=== PATIENT | female | born 1995 | race African-American/Black ===

== ENCOUNTER 2018-05-24 21:59 | Emergency (ER) | payer OTHER ==
[~2018-05-24] VITALS: Ht 154.9 cm; Wt 41.7 kg
[2018-05-24 22:20] VITALS: BP 124/74
[2018-05-24] MEDS ORDERED: Solu-MEDROL 125mg Inj IVP ONE (22:30)
[2018-05-24] MEDS ORDERED: DiphenhydrAMINE 50mg/ml Inj IVP ONE (22:30)
[2018-05-24] MEDS ORDERED: BENADRYL25 MG ORAL (22:33)
[2018-05-24] MEDS ORDERED: PREDNISONE20 MG ORAL (22:33)
--- NOTE | 2018-05-24 22:34 | Emergency Room Report ---
History of Present Illness General Chief Complaint: Allergic Reaction Source: Patient Present Illness HPI Is a 22-year-old female with no past medical history. She presents with chief point of allergic reaction. This afternoon she was getting her eyelid extension and she was laying on the bed and afterward she started having itching to her back. He got better after Benadryl. Now he get came back and worse. Very itchy and swollen to her torso. No fever chills but never had this problem before. No problem with her eyes. Did not take any new medication. No other complaint. Worse with scratching. Allergies: Coded Allergies: No Known Allergies (Unverified , 05/24/18) Patient History Past Medical History: see triage record, old chart reviewed Past Surgical History: none Pertinent Family History: none Social History: Denies: smoking Last Menstrual Period: 03/30/18 Now: No : 2 Para: 1 Immunizations: other Reviewed Nursing Documentation: PMH: Agreed; PSxH: Agreed Nursing Documentation-PMH Hx Hypertension: No - PreEclampsia Review of Systems Eye: Denies: eye pain, blurred vision ENT: Denies: ear pain, nose congestion, throat swelling Respiratory: Denies: cough, shortness of breath Cardiovascular: Denies: chest pain, palpitations Gastrointestinal: Denies: abdominal pain, diarrhea, nausea, vomiting Musculoskeletal: Denies: back pain, joint pain Skin: Reports: rash Neurological: Denies: headache, numbness Endocrine: Denies: increased thirst, increased urine Hematologic/Lymphatic: Denies: easy bruising All Other Systems: negative except mentioned in HPI Physical Exam Vital Signs Date Time Temp Pulse Resp B/P (MAP) Pulse Ox O2 Delivery O2 Flow Rate FiO2 05/24/18 22:05 98.0 85 16 115/73 97 Room Air 98.1 vitals normal Sp02 EP Interpretation: reviewed, normal General Appearance: well appearing, no apparent distress, alert Head: normocephalic, atraumatic Eyes: bilateral eye PERRL, bilateral eye EOMI ENT: hearing grossly normal, normal pharynx Neck: full range of motion, supple, no meningismus Respiratory: chest non-tender, lungs clear, normal breath sounds Cardiovascular #1: regular rate, rhythm, no murmur Gastrointestinal: normal bowel sounds, non tender, no mass, no organomegaly, no bruit, non-distended Musculoskeletal: back normal, gait/station normal, normal range of motion Neurologic: alert, oriented x3 Psychiatric: mood/affect normal Skin: warm/dry, other - diffuse urticaria on torso Medical Decision Making Diagnostic Impression: Primary Impression: Allergic reaction Qualified Codes: T78.40XA - Allergy, unspecified, initial encounter ER Course Patient presents with allergic reaction. No evidence of anaphylaxis or respiratory distress. Better after treatment. We'll discharge home. Last Vital Signs Date Time Temp Pulse Resp B/P (MAP) Pulse Ox O2 Delivery O2 Flow Rate FiO2 05/24/18 22:05 98.0 85 16 115/73 97 Room Air 98.1 Status: improved Disposition: HOME, SELF-CARE Condition: Stable Scripts Prednisone* (PREDNISONE*) 20 Mg Tablet 40 MG ORAL DAILY, #10 TAB Prov: RAY ROSENBERG M.D. 05/24/18 Diphenhydramine Hcl* (BENADRYL*) 25 Mg Capsule 50 MG ORAL Q6H PRN for Itching, #30 CAP Prov: RAY ROSENBERG M.D. 05/24/18 Referrals: [facility],REFERRING (PCP) Patient Instructions: Allergies Additional Instructions: Follow-up with your doctor in 7 days. Return if symptom worsen. RAY ROSENBERG M.D. May 24, 2018 22:34
[2018-05-24 23:30] VITALS: BP 126/75
== END 2018-05-24 23:30 | disposition home or self-care (01) ==
LOC: EMR 22:18
DX: T78.40XA Allergy, unspecified, initial encounter (principal); X58.XXXA Exposure to other specified factors, initial encounter; L50.0 Allergic urticaria; I10 Essential (primary) hypertension
CPT/HCPCS: 96374; 96375; 99284; J1200; J2930

== ENCOUNTER 2018-05-29 16:08 | Emergency (ER) | payer OTHER ==
[~2018-05-29] VITALS: Ht 154.9 cm; Wt 41.7 kg
[~2018-05-29 16:08] MED LIST: BENADRYL25 MG ORAL; PREDNISONE20 MG ORAL
[2018-05-29 16:21] VITALS: BP 118/75
--- NOTE | 2018-05-29 16:40 | Emergency Room Report ---
History of Present Illness General Chief Complaint: Skin Rash/Abscess Present Illness HPI 22-year-old female presents to the emergency department complaining of severely itchy rash that is been progressive 1 week. Patient reports initially started on her wrists bilaterally and have gone up her forearms as well as across her low back. Patient states that she finished a course of steroids and Benadryl which did show some mild improvement initially however her symptoms have returned and progressed as well. She denies pain. Pt. denies fevers, chills or swollen tender lymph nodes. Denies lesions/rashes elsewhere on the body. Denies new medications or body washes or creams. Denies swelling of the lips, tongue , throat or airway. Denies wheezing, or shortness of breath. Denies recent travel , recent illness or ill contacts. denies blisters, oral lesions, or sloughing of the skin. Allergies: Coded Allergies: No Known Allergies (Unverified , 05/24/18) Patient History Past Medical History: see triage record Past Surgical History: none Pertinent Family History: none Now: No Reviewed Nursing Documentation: PMH: Agreed; PSxH: Agreed Nursing Documentation-PMH Hx Hypertension: No - PreEclampsia Review of Systems All Other Systems: negative except mentioned in HPI Physical Exam Vital Signs Date Time Temp Pulse Resp B/P (MAP) Pulse Ox O2 Delivery O2 Flow Rate FiO2 05/29/18 16:17 98.8 90 20 118/75 97 98.8 05/29/18 16:21 Room Air Sp02 EP Interpretation: reviewed, normal General Appearance: no apparent distress, alert, GCS 15, non-toxic Head: normocephalic, atraumatic ENT: hearing grossly normal, normal pharynx - no stridor, normal voice, other - No swelling of the lips or tongue, no stridor. Neck: full range of motion Respiratory: chest non-tender, lungs clear, normal breath sounds, speaking full sentences Cardiovascular #1: regular rate, rhythm, no edema Gastrointestinal: normal bowel sounds, non tender, soft Rectal: deferred Genitourinary: normal inspection Musculoskeletal: back normal, gait/station normal, normal range of motion, non- tender Neurologic: alert, oriented x3, responsive, motor strength/tone normal, sensory intact, speech normal, grossly normal Psychiatric: judgement/insight normal Skin: normal color, warm/dry, well hydrated, rash - multiple discrete erythematous and indurated papules in somewhat linear pattern up the bilateral wrists, forearms, and across the lower back, no blisters or vesicles, no warmth. Lymphatic: no adenopathy Medical Decision Making PA Attestation Dr. Miguel is my supervising physician whom pt. management has been discussed with. Diagnostic Impression: Primary Impression: Rash and other nonspecific skin eruption Additional Impression: Insect bites Qualified Codes: W57.XXXA - Bitten or stung by nonvenomous insect and other nonvenomous arthropods, initial encounter ER Course 22-year-old female presents to the emergency department complaining of severely itchy rash that is been progressive 1 week. Patient reports initially started on her wrists bilaterally and have gone up her forearms as well as across her low back. Patient states that she finished a course of steroids and Benadryl which did show some mild improvement initially however her symptoms have returned and progressed as well. She denies pain. Pt. denies fevers, chills or swollen tender lymph nodes. Denies lesions/rashes elsewhere on the body. Denies new medications or body washes or creams. Denies swelling of the lips, tongue , throat or airway. Denies wheezing, or shortness of breath. Denies recent travel , recent illness or ill contacts. denies blisters, oral lesions, or sloughing of the skin. Ddx considered but are not limited to cellulitis, scabies, insect bites, tic bites, spider bites, contact dermatitis, Drug reaction, allergic reaction, fungal infection, lice. Vital signs: are WNL, pt. is afebrile H&PE are most consistent with suspected scabies due to linear pattern, and continued progression despite steroid burst and Benadryl. ORDERS: none required at this time, the diagnosis is clinical ED INTERVENTIONS: None required at this time. DISCHARGE: At this time pt. is stable for d/c to home. Will provide printed patient care instructions, and any necessary prescriptions. Care plan and follow up instructions have been discussed with the patient prior to discharge. Last Vital Signs Date Time Temp Pulse Resp B/P (MAP) Pulse Ox O2 Delivery O2 Flow Rate FiO2 05/29/18 16:21 98.8 90 20 118/75 97 Room Air 98.8 Disposition: HOME, SELF-CARE Condition: Stable Scripts Prednisone* (PREDNISONE*) 20 Mg Tablet 40 MG ORAL DAILY for 2 Days, #4 TAB Prov: Rula Davis 05/29/18 Hydroxyzine HCl (Hydroxyzine HCl) 25 Mg Tablet 25 MG ORAL FOUR TIMES A DAY, #30 TAB Prov: Rula Davis 05/29/18 Permethrin* (ELIMITE*) 60 Gm Cream..g. 1 APPLIC TOPIC ONCE, #60 GM 0 Refills Apply cream from head to toe; leave on for 8-14 hours before washing off with water; may reapply in 1 week if live mites appear. Prov: Rula Davis 05/29/18 Patient Instructions: Scabies, Pediatric Additional Instructions: Take medications as directed. Follow up with a Primary Care Provider in 3-5 days for DERMATOLOGY REFERRAL , even if your symptoms have resolved. --Please review list of primary care clinics, if you do not already have a primary care provider Return sooner to ED if new symptoms occur, or current symptoms become worse. Do not drink alcohol, drive, or operate heavy machinery while taking HYDROXYZINE as this may cause drowsiness. - Please note that this Emergency Department Report was dictated using [employer] technology software, occasionally this can lead to erroneous entry secondary to interpretation by the dictation equipment. Rula Davis May 29, 2018 16:40
[2018-05-29] MEDS ORDERED: ATARAX25 MG ORAL (16:42)
[2018-05-29] MEDS ORDERED: PERMETHRIN60 GM TOPIC (16:42)
[2018-05-29] MEDS ORDERED: PREDNISONE20 MG ORAL (16:56)
[2018-05-29 17:00] VITALS: BP 118/75
== END 2018-05-29 17:30 | disposition home or self-care (01) ==
LOC: EMR 17:17
DX: S40.862A Insect bite (nonvenomous) of left upper arm, initial encounter (principal); S40.861A Insect bite (nonvenomous) of right upper arm, initial encounter; R21 Rash and other nonspecific skin eruption; W57.XXXA Bitten or stung by nonvenomous insect and other nonvenomous arthropods, initial encounter; Y93.9 Activity, unspecified; Y92.89 Other specified places as the place of occurrence of the external cause; Y99.9 Unspecified external cause status
CPT/HCPCS: 99283

== ENCOUNTER 2018-10-25 23:38 | Emergency (ER) | payer OTHER ==
[~2018-10-25] VITALS: Ht 154.9 cm; Wt 46.3 kg
[~2018-10-25 23:38] MED LIST changes: +ATARAX25 MG ORAL; +CEPHALEXIN500 MG ORAL; +METRONIDAZOLE500 MG ORAL; +NKM; +PERMETHRIN60 GM TOPIC
[2018-10-25 23:49] VITALS: BP 118/77
--- NOTE | 2018-10-25 23:50 | NUR ---
ED Nurse Note: Patient presents with complaints of bleeding x 2 weeks, refuses iv start and hydration. Only agreed to labs. urine test negative.
[2018-10-25] MEDS ORDERED: NKM (23:53)
[2018-10-26 00:33] LABS: EOSINOPHILS % (AUTO) 5.6 % (0.0-3.0); HEMATOCRIT 33.7 % (37.0-47.0); HEMOGLOBIN 11.1 G/DL (12.0-16.0); LYMPHOCYTES % (AUTO) 36.8 % (20.0-45.0); MEAN CORPUSCULAR VOLUME 86 FL (80-99); MONOCYTES % (AUTO) 10.1 % (1.0-10.0); NEUTROPHILS % (AUTO) 46.5 % (45.0-75.0); PLATELET COUNT 251 K/UL (150-450); RED BLOOD COUNT 3.93 M/UL (4.20-5.40); WHITE BLOOD COUNT 5.5 K/UL (4.8-10.8)
[2018-10-26 00:34] LABS: APPEARANCE,URINE CLEAR; COLOR,URINE YELLOW
[2018-10-26 00:35] LABS: BILIRUBIN, URINE NEGATIVE (NEGATIVE); GLUCOSE, URINE (UA) NEGATIVE (NEGATIVE); KETONES,URINE NEGATIVE (NEGATIVE); NITRITE,URINE NEGATIVE (NEGATIVE); PROTEIN,URINE NEGATIVE (NEGATIVE)
[2018-10-26 00:36] LABS: LEUKOCYTE ESTERASE ,URINE 1+ (NEGATIVE); UROBILINOGEN,URINE NORMAL MG/DL (0.0-1.0)
[2018-10-26 00:56] LABS: ANION GAP 10 mmol/L (5-15); BLOOD UREA NITROGEN 21 mg/dL (7-18); CALCIUM 9.5 MG/DL (8.5-10.1); CARBON DIOXIDE 28 MMOL/L (21-32); CHLORIDE 104 MMOL/L (98-107); CREATININE 0.9 MG/DL (0.55-1.30); POTASSIUM 3.6 MMOL/L (3.5-5.1); SODIUM 142 MMOL/L (136-145)
[2018-10-26 01:03] LABS: ALANINE AMINOTRANSFERASE 24 U/L (12-78); ALBUMIN 3.7 G/DL (3.4-5.0); ALKALINE PHOSPHATASE 53 U/L (46-116); ASPARTATE AMINO TRANSFERASE 15 U/L (15-37); BILIRUBIN,TOTAL 0.1 MG/DL (0.2-1.0)
[2018-10-26 01:20] VITALS: BP 118/77
--- NOTE | 2018-10-26 01:20 | NUR ---
ED Nurse Note: patient cleared for discharge, no s/s of acute distress, ambulatory with steady gait, id band removed, patient verbalized understanding of discharge instructions.
--- NOTE | 2018-10-26 03:42 | Emergency Room Report ---
History of Present Illness General Chief Complaint: Vaginal Source: Patient Present Illness HPI 23-year-old female presents ED for evaluation. Patient states she's been having vaginal bleeding for the last 2 weeks. Started out as her period initially but has progressed longer than normal. States she is typically irregular periods. Denies any pain. States she is not . Is currently on control. Denies nausea or vomiting. Not taking any blood thinners. Denies any dizziness or weakness. No other aggravating relieving factors. Denies any other associated symptoms Allergies: Coded Allergies: No Known Allergies (Unverified , 05/24/18) Patient History Past Medical History: none Past Surgical History: none Pertinent Family History: none Social History: Denies: smoking, alcohol use, drug use Last Menstrual Period: sep 10, 2018 Now: No - unsure : 2 Para: 1 Immunizations: UTD Reviewed Nursing Documentation: PMH: Agreed; PSxH: Agreed Nursing Documentation-PMH Hx Hypertension: No - PreEclampsia Review of Systems All Other Systems: negative except mentioned in HPI Physical Exam Vital Signs Date Time Temp Pulse Resp B/P (MAP) Pulse Ox O2 Delivery O2 Flow Rate FiO2 10/25/18 23:47 99.1 88 16 118/77 99 Room Air Sp02 EP Interpretation: reviewed, normal General Appearance: no apparent distress, alert, GCS 15, non-toxic Head: normocephalic, atraumatic Eyes: bilateral eye normal inspection, bilateral eye PERRL ENT: hearing grossly normal, normal pharynx, no angioedema, normal voice Neck: full range of motion, supple/symm/no masses Respiratory: chest non-tender, lungs clear, normal breath sounds, speaking full sentences Cardiovascular #1: regular rate, rhythm, no edema Cardiovascular #2: 2+ carotid (R), 2+ carotid (L), 2+ radial (R), 2+ radial (L) , 2+ dorsalis pedis (R), 2+ dorsalis pedis (L) Gastrointestinal: normal bowel sounds, non tender, soft, non-distended, no guarding, no rebound Rectal: deferred Genitourinary: normal inspection, no CVA tenderness Musculoskeletal: back normal, gait/station normal, normal range of motion, non- tender Neurologic: alert, oriented x3, responsive, motor strength/tone normal, sensory intact, speech normal Psychiatric: judgement/insight normal, memory normal, mood/affect normal, no suicidal/homicidal ideation Reflexes: 3+ bicep (R), 3+ bicep (L), 3+ tricep (R), 3+ tricep (L), 3+ knee (R) , 3+ knee (L) Skin: normal color, no rash, warm/dry, well hydrated Lymphatic: no adenopathy Medical Decision Making Diagnostic Impression: Primary Impression: Vaginal bleeding ER Course Hospital Course 23-year-old F presents to ED with vaginal bleeding Differential diagnosis includes- anemia, DUB, ectopic prengnacy Clinical course Patient placed on stretcher. After initial history and physical I ordered labs , UA Labs - no leukocytosis, Hb/Hct stable, electrolytes ok, BHCG negative Discussed findings with patient. Consideration for dysfunctional uterine bleeding. No indication for ultrasound at this time the patient is not having any pain. Labs unremarkable. Vital stable. Safe for discharge close outpatient follow-up. 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 we'll also provide referrals. I feel this is a highly complex case requiring extensive working including EKG/ Rhythm strip, Xray/CT/US, Blood/urine lab work, repeat exams while in ED, and administration of strong opiates/narcotics for pain control, admission to hospital or close patient follow up. Diagnosis - vaginal bleeding Stable and discharged to home. Followup with PMD/OBGYN. Return to ED if symptoms recur or worsen Labs Test 10/25/18 23:58 10/26/18 00:18 Urine Color Yellow Urine Appearance Clear Urine pH 5.0 (4.5-8.0) Urine Specific [place] 1.020 (1.005-1.035) Urine Protein Negative (NEGATIVE) Urine Glucose (UA) Negative (NEGATIVE) Urine Ketones Negative (NEGATIVE) Urine Blood 5+ (NEGATIVE) Urine Nitrite Negative (NEGATIVE) Urine Bilirubin Negative (NEGATIVE) Urine Urobilinogen Normal MG/DL (0.0-1.0) Urine Leukocyte Esterase 1+ (NEGATIVE) Urine RBC 2-4 /HPF (0 - 2) Urine WBC 0 /HPF (0 - 2) Urine Squamous Epithelial Cells Occasional /LPF Urine Bacteria Few /HPF (NONE) Urine HCG, Qualitative Negative (NEGATIVE) White Blood Count 5.5 K/UL (4.8-10.8) Red Blood Count 3.93 M/UL (4.20-5.40) Hemoglobin 11.1 G/DL (12.0-16.0) Hematocrit 33.7 % (37.0-47.0) Mean Corpuscular Volume 86 FL (80-99) Mean Corpuscular Hemoglobin 28.2 PG (27.0-31.0) Mean Corpuscular Hemoglobin Concent 32.8 G/DL (32.0-36.0) Red Cell Distribution Width 12.0 % (11.6-14.8) Platelet Count 251 K/UL (150-450) Mean Platelet Volume 7.5 FL (6.5-10.1) Neutrophils (%) (Auto) 46.5 % (45.0-75.0) Lymphocytes (%) (Auto) 36.8 % (20.0-45.0) Monocytes (%) (Auto) 10.1 % (1.0-10.0) Eosinophils (%) (Auto) 5.6 % (0.0-3.0) Basophils (%) (Auto) 1.0 % (0.0-2.0) Sodium Level 142 MMOL/L (136-145) Potassium Level 3.6 MMOL/L (3.5-5.1) Chloride Level 104 MMOL/L (98-107) Carbon Dioxide Level 28 MMOL/L (21-32) Anion Gap 10 mmol/L (5-15) Blood Urea Nitrogen 21 mg/dL (7-18) Creatinine 0.9 MG/DL (0.55-1.30) Estimat Glomerular Filtration Rate > 60 mL/min (>60) Glucose Level 94 MG/DL (74-106) Calcium Level 9.5 MG/DL (8.5-10.1) Total Bilirubin 0.1 MG/DL (0.2-1.0) Aspartate Amino Transf (AST/SGOT) 15 U/L (15-37) Alanine Aminotransferase (ALT/SGPT) 24 U/L (12-78) Alkaline Phosphatase 53 U/L (46-116) Total Protein 7.4 G/DL (6.4-8.2) Albumin 3.7 G/DL (3.4-5.0) Globulin 3.7 g/dL Albumin/Globulin Ratio 1.0 (1.0-2.7) Lipase 168 U/L (73-393) Human Chorionic Gonadotropin, Quant < 1 mIU/mL (1-6) Last Vital Signs Date Time Temp Pulse Resp B/P (MAP) Pulse Ox O2 Delivery O2 Flow Rate FiO2 10/26/18 01:20 99.1 79 16 118/77 99 Room Air Status: improved Disposition: HOME, SELF-CARE Condition: Stable Referrals: [facility] (PCP) [facility] [place] Patient Instructions: Abnormal Uterine Bleeding, [id number] Familia Unger MD Oct 26, 2018 03:42
== END 2018-10-26 01:20 | disposition home or self-care (01) ==
LOC: EMR 23:59
DX: N93.9 Abnormal uterine and vaginal bleeding, unspecified (principal)
CPT/HCPCS: 36415; 80053; 81003; 81025; 83690; 84702; 85025; 96360; 99284

== ENCOUNTER 2019-02-21 20:40 | Emergency (ER) | payer OTHER ==
[~2019-02-21] VITALS: Ht 152.4 cm; Wt 55.3 kg
--- NOTE | 2019-02-21 21:04 | Emergency Room Report ---
History of Present Illness General Chief Complaint: Headache Source: Patient Present Illness HPI Patient presents with a headache. This began at 9 AM. She was at work since 8 AM. The onset was gradual. She feels it more on the left side of her head and is throbbing. She tried taking 3 Advil earlier in the day and took a nap. This helped minimally. Later on she took 2 Excedrin. The pain is still present. She has had headaches like this before. When they are "migraines" she has difficulty with light and looking at her cell phone. This is not present this time. She denies any neck stiffness, weakness, numbness. She has nausea. Her last period was February 02 and not normal for her. She is on control. The confucianism is tender to touch and recreates the pain. The patient has some stress at this time. 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 She just began the second job. There is some stress. H/O pre-eclampsia. H/O gall bladder disease during Allergies: Coded Allergies: No Known Allergies (Unverified , 02/21/19) Patient History Past Medical History: see triage record Social History: Denies: smoking Social History Narrative 2 jobs Last Menstrual Period: 02-02-2019 Now: No Reviewed Nursing Documentation: PMH: Agreed; PSxH: Agreed Nursing Documentation-PMH Past Medical History: No Stated History Hx Hypertension: No - PreEclampsia AND GALLSTONES DURING Review of Systems All Other Systems: negative except mentioned in HPI Physical Exam Vital Signs Date Time Temp Pulse Resp B/P (MAP) Pulse Ox O2 Delivery O2 Flow Rate FiO2 02/21/19 20:51 98.1 81 16 119/82 (94) 97 Room Air Sp02 EP Interpretation: reviewed, normal General Appearance: well appearing, no apparent distress, GCS 15 Head: normocephalic, atraumatic, other - Tender L confucianism area Eyes: bilateral eye normal inspection, bilateral eye PERRL, bilateral eye EOMI ENT: moist mucus membranes Neck: supple Respiratory: lungs clear, normal breath sounds Cardiovascular #1: regular rate, rhythm, other - L temporal artery not tender Cardiovascular #2: 2+ radial (R) Gastrointestinal: normal inspection, normal bowel sounds, non tender, no mass, non-distended Musculoskeletal: back normal, gait/station normal, normal range of motion Neurologic: alert, oriented x3, powder coat painter III-XII nml as tested, motor strength/tone normal, DTRs symmetric, sensory intact, cerebellar normal, normal gait, speech normal Psychiatric: mood/affect normal Skin: no rash Medical Decision Making Diagnostic Impression: Primary Impression: Headache Qualified Codes: R51 - Headache ER Course Patient presents with headache. Differential includes migraine, tension viral syndrome amongst others. We need to establish she is not at this time. Based on the onset and the lack of neck pain this does not appear to be a subarachnoid bleed and with the lack of neck pain meningitis is excluded. Patient requests oral meds. She will be given Reglan, Benadryl and Motrin. UA with pyuria but contaminated. No dysuria. Culture ordered and discussed with patient. Improving with meds. Told to return if not better tomorrow for re-evaluation. Patient stable for outpatient observation and treatment. Laboratory Tests Test 02/21/19 21:11 Urine Color Pale yellow Urine Appearance Slightly cloudy Urine pH 7 (4.5-8.0) Urine Specific [place] 1.010 (1.005-1.035) Urine Protein Negative (NEGATIVE) Urine Glucose (UA) Negative (NEGATIVE) Urine Ketones Negative (NEGATIVE) Urine Blood Negative (NEGATIVE) Urine Nitrite Negative (NEGATIVE) Urine Bilirubin Negative (NEGATIVE) Urine Urobilinogen Normal MG/DL (0.0-1.0) Urine Leukocyte Esterase 3+ (NEGATIVE) H Urine RBC 2-4 /HPF (0 - 2) H Urine WBC 5-10 /HPF (0 - 2) H Urine Squamous Epithelial Cells Moderate /LPF (NONE/OCC) H Urine Bacteria Moderate /HPF (NONE) H Urine HCG, Qualitative Negative (NEGATIVE) Last Vital Signs Date Time Temp Pulse Resp B/P (MAP) Pulse Ox O2 Delivery O2 Flow Rate FiO2 02/21/19 21:58 97.4 74 16 114/75 99 Room Air Status: improved Disposition: HOME, SELF-CARE Condition: Improved Scripts Ondansetron Odt* (ZOFRAN ODT*) 4 Mg Tab.rapdis 4 MG BC EVERY 8 HOURS PRN for nausea, #4 TAB 0 Refills Prov: Leeroy Lerma MD 02/21/19 Ibuprofen* (MOTRIN*) 600 Mg Tablet 600 MG ORAL Q6H PRN for For Pain, #12 TAB 0 Refills Prov: Leeroy Lerma MD 02/21/19 Leeroy Lerma MD Feb 21, 2019 21:04
--- NOTE | 2019-02-21 21:08 | NUR ---
ED Nurse Note: pt walked in c/o headache and nausea this morning, denies abd pain. pt AA&ox4, gcs=15, skin warm and dry, resp even and unlabored on RA, vss, ambulates w/ steady gait, no active nausea nor vomiting noted at this time, will cont monitor.
[2019-02-21 21:09] VITALS: BP 121/78
--- NOTE | 2019-02-21 21:15 | NUR ---
ED Nurse Note: urine specimen obtained and sent.
[2019-02-21 21:17] LABS: APPEARANCE,URINE SLIGHTLY CLOUDY; BILIRUBIN, URINE NEGATIVE (NEGATIVE); COLOR,URINE PALE YELLOW; GLUCOSE, URINE (UA) NEGATIVE (NEGATIVE); KETONES,URINE NEGATIVE (NEGATIVE); LEUKOCYTE ESTERASE ,URINE 3+ (NEGATIVE); NITRITE,URINE NEGATIVE (NEGATIVE); PH,URINE 7 (4.5-8.0); PROTEIN,URINE NEGATIVE (NEGATIVE); UROBILINOGEN,URINE NORMAL MG/DL (0.0-1.0)
[2019-02-21] MEDS ORDERED: ONDANSETRON ODT4 MG BC (21:48)
[2019-02-21] MEDS ORDERED: IBUPROFEN600 MG ORAL (21:48)
[2019-02-21 21:58] VITALS: BP 114/75
--- NOTE | 2019-02-21 21:59 | NUR ---
ED Nurse Note: pt cleared to be d/c per ERMD, pt discharge and aftercare instruction provided w/ prescription, pt education done via discussion and handout, pt advised to follow up with pcp or return to ed if changes in condition, pt verbalized understanding and agrees with plan, vss, ambulatory w/ steady gait, left w/ all belongings.
== END 2019-02-21 21:58 | disposition home or self-care (01) ==
LOC: EMR 21:15
DX: R51 Headache (principal); R11.0 Nausea
CPT/HCPCS: 81003; 81025; 87086; 99283

== ENCOUNTER 2019-02-25 15:41 | Emergency (ER) | payer OTHER ==
[~2019-02-25] VITALS: Ht 152.4 cm; Wt 54.4 kg
[~2019-02-25 15:41] MED LIST changes: +IBUPROFEN600 MG ORAL; +ONDANSETRON ODT4 MG BC
--- NOTE | 2019-02-25 16:10 | NUR ---
ED Nurse Note: PT RUDE DISRESPECTFUL WANTED ANOTHER NURSE TO TRIAGE . WHEN I REACHED TO REMOVE HER BP CUFF SHE PULLED BACK AND ASKED FOR ANOTHER RN . I SAID OF COARSE AND ASKED ANOTHER STAFF MEMBER TO TRIAGE HER. AND ASKED HER TO WAIT IN THE WAITING ROOM . pT STATED I DONT APPRECIATE YOU SNACHING THE THERMOMETER OUT OF MY MOUTH. i STATED I DID NOT AND I USUALLY PULL IT OUT GENTL.Y AND PT INSTINCTIVLY OPEN THEIR MOUTH. LAW TUTOR INFORMED AND ERMD INFORMED.
[2019-02-25] MEDS ORDERED: birth control pill (16:33)
--- NOTE | 2019-02-25 16:42 | NUR ---
ED Nurse Note: PT WALKED IN TO ER TODAY FROM HOME. AOX4. PT C/O HEADACHE, ABDOMINAL PAIN, AND WHITE VAGINAL DISCHARGE X 1 WEEK AGO. PT STATES SHE WAS SEEN [place] [facility] [place]MPTOM[place] AND WAS GIVEN MEDS BUT MEDS HAVE NOT RELIEVED SYMPTOMS.
[2019-02-25 16:44] VITALS: BP 122/76
--- NOTE | 2019-02-25 16:51 | NUR ---
ED Nurse Note: URINE COLLECTED AND SENT TO LAB.
[2019-02-25 16:59] LABS: APPEARANCE,URINE CLEAR; BILIRUBIN, URINE NEGATIVE (NEGATIVE); COLOR,URINE PALE YELLOW; GLUCOSE, URINE (UA) NEGATIVE (NEGATIVE); KETONES,URINE NEGATIVE (NEGATIVE); LEUKOCYTE ESTERASE ,URINE NEGATIVE (NEGATIVE); NITRITE,URINE NEGATIVE (NEGATIVE); PH,URINE 7 (4.5-8.0); PROTEIN,URINE NEGATIVE (NEGATIVE); UROBILINOGEN,URINE NORMAL MG/DL (0.0-1.0)
--- NOTE | 2019-02-25 17:05 | NUR ---
ED Nurse Note: PT BACK FROM CT VIA [facility]W.
--- NOTE | 2019-02-25 17:35 | Emergency Room Report ---
History of Present Illness General Chief Complaint: Female Urogenital Problems Source: Patient, Medical Record Present Illness HPI 23 YO Female presents to the ED c/o 02/02 in severity lower abdominal pain with white vaginal d/c. Pt. also reports return of her DODGE which she was evaluated here for last week. Pt. denies N/V/F/C. She denies suspicion for STI G /C. pt. states her symptoms are exactly like when she had BV, and wants to be treated for that. She states that she was told there were abnormal values in her UA from last visit. Denies joint pain or genital lesions. pt denies any other aggravating or relieving factors. pt. reports that previously rx'd pain meds only slightly reduce her DODGE, and it returns once they wear off. Allergies: Coded Allergies: No Known Allergies (Unverified , 02/21/19) Patient History Past Medical History: see triage record, migraines Past Surgical History: none Pertinent Family History: none, other - migraines Now: No Reviewed Nursing Documentation: PMH: Agreed; PSxH: Agreed Nursing Documentation-PMH Past Medical History: No History, Except For Hx Hypertension: No - PreEclampsia AND GALLSTONES DURING Review of Systems All Other Systems: negative except mentioned in HPI Physical Exam Vital Signs Date Time Temp Pulse Resp B/P (MAP) Pulse Ox O2 Delivery O2 Flow Rate FiO2 02/25/19 16:15 98.4 85 19 129/80 (96) 98 Room Air Sp02 EP Interpretation: reviewed, normal General Appearance: no apparent distress, alert, GCS 15, non-toxic Head: normocephalic, atraumatic Eyes: bilateral eye normal inspection, bilateral eye PERRL ENT: hearing grossly normal, normal voice Neck: full range of motion Respiratory: lungs clear, normal breath sounds, speaking full sentences Cardiovascular #1: regular rate, rhythm Gastrointestinal: normal bowel sounds, non tender, soft, non-distended, no guarding Genitourinary: normal inspection, no CVA tenderness, deferred - pt. deferred pelvic exam and wet mount exam. Musculoskeletal: back normal, gait/station normal, normal range of motion, non- tender Neurologic: alert, oriented x3, responsive, motor strength/tone normal, sensory intact, normal gait, speech normal, grossly normal Psychiatric: judgement/insight normal, memory normal, other - Pt. with hypervigilant affect. Medical Decision Making PA Attestation Dr. Unger is my supervising Physician whom patient management has been discussed with. Diagnostic Impression: Primary Impression: Vaginitis Qualified Codes: N76.0 - Acute vaginitis Additional Impression: BV (bacterial vaginosis) ER Course 23 YO Female presents to the ED c/o 6/10 in severity lower abdominal pain with white vaginal d/c. Pt. also reports return of her DODGE which she was evaluated here for last week. Pt. denies N/V/F/C. She denies suspicion for STI G /C. pt. states her symptoms are exactly like when she had BV, and wants to be treated for that. She states that she was told there were abnormal values in her UA from last visit. Denies joint pain or genital lesions. pt denies any other aggravating or relieving factors. pt. reports that previously rx'd pain meds only slightly reduce her DODGE, and it returns once they wear off. Ddx considered but are not limited to UTi , Pyelo, STI, Stone, Cystitis, Yeast, BV Vital signs: are WNL, pt. is afebrile H& PE are most consistent with: Vaginitis possible UTI review of final Urine culture shows roberto and gram positive cocci ORDERS: - UA labs are attached- inflammatory markers are no longer elevated. - Wet Mount : Pt. declines ED INTERVENTIONS: -Tylenol PO --Pt. requested information for reporting complaints about staff. charge nurse was notified and pt. was given customer service information. DISCHARGE: At this time pt. is stable for d/c to home. Will provide printed patient care instructions, and any necessary prescriptions. Care plan and follow up instructions have been discussed with the patient prior to discharge. discussed with the patient prior to discharge. Labs Test 02/25/19 16:45 Urine Color Pale yellow Urine Appearance Clear Urine pH 7 (4.5-8.0) Urine Specific [place] 1.010 (1.005-1.035) Urine Protein Negative (NEGATIVE) Urine Glucose (UA) Negative (NEGATIVE) Urine Ketones Negative (NEGATIVE) Urine Blood 1+ (NEGATIVE) Urine Nitrite Negative (NEGATIVE) Urine Bilirubin Negative (NEGATIVE) Urine Urobilinogen Normal MG/DL (0.0-1.0) Urine Leukocyte Esterase Negative (NEGATIVE) Urine RBC 0-2 /HPF (0 - 2) Urine WBC 0-2 /HPF (0 - 2) Urine Squamous Epithelial Cells Few /LPF (NONE/OCC) Urine Bacteria None /HPF (NONE) Urine HCG, Qualitative Negative (NEGATIVE) Last Vital Signs Date Time Temp Pulse Resp B/P (MAP) Pulse Ox O2 Delivery O2 Flow Rate FiO2 02/25/19 16:44 98.2 82 18 122/76 99 Room Air Status: improved Disposition: HOME, SELF-CARE Condition: Serious Scripts Metronidazole* (FLAGYL*) 500 Mg Tablet 500 MG ORAL BID, #14 TAB 0 Refills Prov: Rula Davis 02/25/19 Fluconazole (FLUCONAZOLE) 100 Mg Tablet 100 MG ORAL DAILY for 4 Days, #4 TAB 0 Refills Prov: Rula Davis 02/25/19 Departure Forms: Return to Work Return to Work Date: Feb 28, 2019 Work Restrictions: None Other Restrictions: May return Sooner if Symptoms have resolved. Return to Full Activity: Feb 28, 2019 Patient Instructions: Bacterial Vaginosis, [id number] Additional Instructions: Take medications as directed. Follow up with a Primary Care Provider in 3-5 days, even if your symptoms have resolved. --Please review list of primary care clinics, if you do not already have a primary care provider Return sooner to ED if new symptoms occur, or current symptoms become worse. - Please note that this Emergency Department Report was dictated using [employer] Officeproduction engineer technology software, occasionally this can lead to erroneous entry secondary to interpretation by the dictation equipment. Rula Davis Feb 25, 2019 17:35
[2019-02-25] MEDS ORDERED: METRONIDAZOLE500 MG ORAL (17:39)
[2019-02-25] MEDS ORDERED: FLUCONAZOLE100 MG ORAL (17:39)
[2019-02-25 17:46] VITALS: BP 124/76
--- NOTE | 2019-02-25 17:46 | NUR ---
ED Nurse Note: PT LAYING PEACEFULLY IN BED IN NAD. AOX4. PRESCRIPTIONS AND DISCHARGE PAPERWORK EXPLAINED TO PT. PT VERBALIZES UNDERSTANDING AND ALL QUESTIONS ANSWERED. PRESCRIPTIONS AND DISCHARGE PAPERWORK GIVEN TO PT AND ID WRISTBAND REMOVED. PT WALKED OUT OF ER WITH STEADY GAIT AND ALL BELONGINGS.
== END 2019-02-25 17:47 | disposition home or self-care (01) ==
LOC: EMR 16:51
DX: N76.0 Acute vaginitis (principal)
CPT/HCPCS: 81003; 81025; 99283

== ENCOUNTER 2019-08-11 16:47 | Emergency (ER) | payer OTHER ==
[~2019-08-11] VITALS: Ht 154.9 cm; Wt 63.5 kg
[~2019-08-11 16:47] MED LIST changes: +FLUCONAZOLE100 MG ORAL; +birth control pill
[2019-08-11 16:54] VITALS: BP 126/85
[2019-08-11] MEDS ORDERED: PROMETHAZINE-D118 ML ORAL (17:19)
[2019-08-11] MEDS ORDERED: TYLENOL EXTRA500 MG ORAL (17:19)
[2019-08-11 17:31] VITALS: BP 131/86
--- NOTE | 2019-08-11 21:34 | Emergency Room Report ---
History of Present Illness General Chief Complaint: Upper Respiratory Illness Source: Patient Present Illness HPI 24-year-old female presents with cold symptoms for 3 days. She reports a cough , sore throat, body aches. Denies fever, vomiting, diarrhea, abdominal pain, ear pain, chest pain, shortness of breath. She has tried TheraFlu with some relief. Allergies: Coded Allergies: No Known Allergies (Unverified , 02/21/19) Patient History Past Medical History: see triage record Last Menstrual Period: 07/05/2019 Reviewed Nursing Documentation: PMH: Agreed; PSxH: Agreed Nursing Documentation-PMH Past Medical History: No History, Except For Hx Hypertension: No - Preeclampsia AND GALLSTONES DURING Review of Systems All Other Systems: negative except mentioned in HPI Physical Exam Vital Signs Date Time Temp Pulse Resp B/P (MAP) Pulse Ox O2 Delivery O2 Flow Rate FiO2 08/11/19 16:54 98.2 95 18 126/85 (99) 98 Room Air Sp02 EP Interpretation: reviewed, normal General Appearance: no apparent distress, alert, GCS 15, non-toxic Head: normocephalic, atraumatic ENT: hearing grossly normal, normal pharynx, normal voice Neck: full range of motion, no meningismus, supple/symm/no masses Respiratory: lungs clear, normal breath sounds, speaking full sentences Cardiovascular #1: regular rate, rhythm Gastrointestinal: normal bowel sounds, non tender, soft, non-distended, no guarding, no rebound Genitourinary: normal inspection, no CVA tenderness Musculoskeletal: back normal, normal range of motion, gait/station normal, non- tender Neurologic: alert, motor strength/tone normal, oriented x3, sensory intact, responsive, speech normal Psychiatric: judgement/insight normal, mood/affect normal Skin: no rash, warm/dry Lymphatic: no adenopathy Medical Decision Making PA Attestation Dr. Ontiveros is my supervising physician whom patient management and care has been discussed with. Diagnostic Impression: Primary Impression: Upper respiratory infection Qualified Codes: J06.9 - Acute upper respiratory infection, unspecified ER Course Pt. presents to the ED c/o cold symptoms Ddx considered but are not limited to URI, influenza, pneumonia, strep pharyngitis Vital signs: are WNL, pt. is afebrile H&PE are most consistent with viral upper respiratory infection ORDERS: none required at this time, the diagnosis is clinical ED INTERVENTIONS: None required at this time. DISCHARGE: At this time pt. is stable for d/c to home. Will provide printed patient care instructions, and any necessary prescriptions. Care plan and follow up instructions have been discussed with the patient prior to discharge. Last Vital Signs Date Time Temp Pulse Resp B/P (MAP) Pulse Ox O2 Delivery O2 Flow Rate FiO2 08/11/19 17:31 97.9 73 18 131/86 98 Room Air Disposition: HOME, SELF-CARE Condition: Stable Scripts Acetaminophen* (TYLENOL EXTRA STRENGTH*) 500 Mg Tablet 500 MG ORAL Q6H PRN for Mild Pain/Temp > 100.5, #20 TAB 0 Refills Prov: Breanna Salcido 08/11/19 D-Methorphan Hb/Prometh Hcl* (PROMETHAZINE-DM SYRUP*) 118 Ml Syrup 5 ML ORAL Q4H PRN for For Cough, #240 ML 0 Refills Prov: Breanna Salcido 08/11/19 Referrals: NON PHYSICIAN (PCP) Departure Forms: Return to Work Return to Work in (Days): 2 Patient Instructions: Cough, Adult, [id number], Upper Respiratory Infection, Adult Additional Instructions: Take medications as directed. Follow up with a Primary Care Provider in 3-5 days, even if your symptoms have resolved. --Please review list of primary care clinics, if you do not already have a primary care provider Return sooner to ED if new symptoms occur, or current symptoms become worse. - Please note that this Emergency Department Report was dictated using [employer] electrical engineering officer technology software, occasionally this can lead to erroneous entry secondary to interpretation by the dictation equipment. Breanna Salcido Aug 11, 2019 21:34
== END 2019-08-11 19:30 | disposition home or self-care (01) ==
LOC: EMR 19:16
DX: J06.9 Acute upper respiratory infection, unspecified (principal)
CPT/HCPCS: 99282